=== PATIENT | female | born 1950 | race Caucasian/White ===

== ENCOUNTER 2025-03-21 09:25 | Outpatient (OUT) | payer MEDICARE, SELFPAY | END 2025-03-21 09:26 | disposition home or self-care (01) | LOC: RAD 09:29 | PROVIDERS: PCP Family Medicine; Visit Provider Family Medicine | DX: E28.39 Other primary ovarian failure (principal); M85.80 Other specified disorders of bone density and structure, unspecified site | CPT/HCPCS: 77080 ==